=== PATIENT | male | born 1960 | race Caucasian/White ===

== ENCOUNTER 2022-12-19 06:07 | Day surgery (SDC) | payer OTHER ==
[2022-12-15 14:53] VITALS: BMI 34.9
[2022-12-19] MEDS ORDERED: MIDAZOLAM HCL 2 MG/2 ML SINGLE DOSE VIAL ONE (07:35)
[2022-12-19] MEDS ORDERED: ROPIVACAINE HCL 0.5% 30ML VIAL ONE (07:36)
[2022-12-19] MEDS ORDERED: LIDOCAINE HCL/PF 2% SDV 5ML VIAL ONE (07:56)
[2022-12-19] MEDS ORDERED: ceFAZolin SODIUM 1 GM VIAL ONE (07:56)
[2022-12-19] MEDS ORDERED: PROPOFOL 40 ML ONE (07:56)
[2022-12-19] MEDS ORDERED: ONDANSETRON 4 MG/2 ML VIAL ONE (08:43)
[2022-12-19] MEDS ORDERED: DEXAMETHASONE SOD PHOSPHATE 4 MG/1 ML VIAL ONE (08:43)
[2022-12-19] MEDS ORDERED: ONDANSETRON 4 MG/2 ML VIAL IVPUSH PRN (09:24)
[2022-12-19] MEDS ORDERED: oxyCODONE HCL 5 MG TABLET PO PRN (09:24)
[2022-12-19] MEDS ORDERED: IBUPROFEN 800 MG/8 ML IJ IVPB PRN (09:24)
[2022-12-19] MEDS ORDERED: LACTATED RINGERS SOLUTION 1,000 ML IV SCH (09:30)
[2022-12-19] MEDS ORDERED: FENTANYL CITRATE/PF 50 MCG/ML VIAL ONE ×3 (09:40→10:09)
[2022-12-19 11:07] VITALS: RESP 18; TEMP 97.8
[2022-12-19 11:10] VITALS: BP 135/74; PULSE 79
== END 2022-12-19 11:41 | disposition home or self-care (01) ==
LOC: FASU 06:07
PROVIDERS: ATTEND Orthopaedic Surgery
PROC: 0LM14ZZ Reattachment of Right Shoulder Tendon, Percutaneous Endoscopic Approach (ICD-10-PCS; 2022-12-19)
PROC: 0PB94ZZ Excision of Right Clavicle, Percutaneous Endoscopic Approach (ICD-10-PCS; 2022-12-19)
PROC: 0RBJ4ZZ Excision of Right Shoulder Joint, Percutaneous Endoscopic Approach (ICD-10-PCS; 2022-12-19)
PROC: 0RNJ4ZZ Release Right Shoulder Joint, Percutaneous Endoscopic Approach (ICD-10-PCS; 2022-12-19)
PROC: 0LB14ZZ Excision of Right Shoulder Tendon, Percutaneous Endoscopic Approach (ICD-10-PCS; principal; 2022-12-19 08:35)
DX: M25.611 Stiffness of right shoulder, not elsewhere classified (principal); S43.431A Superior glenoid labrum lesion of right shoulder, initial encounter; M75.101 Unspecified rotator cuff tear or rupture of right shoulder, not specified as traumatic; M75.41 Impingement syndrome of right shoulder; M94.211 Chondromalacia, right shoulder; M24.011 Loose body in right shoulder; M67.211 Synovial hypertrophy, not elsewhere classified, right shoulder; X58.XXXA Exposure to other specified factors, initial encounter; Y93.9 Activity, unspecified; Y92.9 Unspecified place or not applicable
CPT/HCPCS: 94760